=== PATIENT | female | born 1940 | race Caucasian/White ===

== ENCOUNTER 2017-05-16 09:59 | Observation (INO) | payer MEDICARE, OTHER ==
[~2017-05-16] VITALS: Ht 162.6 cm; Wt 88.0 kg
[2017-05-16] MEDS: ENOXAPARIN 40 MG/0.4 ML SYRINGE (J1650) SC SCH (09:00)
[~2017-05-16 09:59] MED LIST: ADV100INH INH; COUM2.5T17 PO; ESCI10TA2 PO; PEG1POW PO; PERC5TAB12 PO; SENO8.6T10 PO; ZETI10TA30 PO
[2017-05-16] MEDS ORDERED: methylPREDNISolone INJ 125 MG/2 ML VIAL (J2930) IV ONE (10:15)
[2017-05-16] MEDS ORDERED: ASPIRIN 81 MG CHEW TABLET PO ONE (10:15)
[2017-05-16] MEDS ORDERED: IPRATROPIUM 0.5MG/ALBUTEROL 2.5MG INH SOL UD 3ML (DUONEB)(J7620) NEB ONE (10:15)
[2017-05-16] MEDS ORDERED: FUROSEMIDE 40 MG/4 ML VIAL (J1940) IV ONE (10:15)
[2017-05-16] MEDS ORDERED: MELO15TA4 PO (10:25)
[2017-05-16] MEDS ORDERED: FURO40TA2 PO (10:25)
[2017-05-16] MEDS ORDERED: BREO1INH3 INH (10:25)
[2017-05-16] MEDS ORDERED: magnesium PO (10:25)
[2017-05-16] MEDS ORDERED: DIOV80TA3 PO (10:25)
[2017-05-16] MEDS ORDERED: ALBU83IN INH (10:25)
[2017-05-16] MEDS ORDERED: ALBU17IN INH (10:25)
[2017-05-16] MEDS ORDERED: TRAM50TA2 PO (10:25)
[2017-05-16 10:49] LABS: ABG BASE EXCESS 6.9 (-2.0-2.0); ABG HCO3 33.4 MEQ/L (22.0-26.0); ABG PARTIAL PRESSURE CO2 54.8 mmHg (35.0-45.0); ABG PARTIAL PRESSURE O2 92.8 mmHg (75.0-100.0); ABG TOTAL CO2 35.1 MEQ/L (23.0-31.0); ABG pH (ARTERIAL) 7.403 UNITS (7.350-7.450)
[2017-05-16 10:50] LABS: ABG STANDARD HCO3 30.7 MEQ/L (22.0-26.0)
[2017-05-16 11:03] LABS: BASO % 0.3 % (0.0-1.0); EOS % 0.8 % (0.0-3.0); LARGE UNSTAINED CELL % 1.8 % (0.0-4.0); LYMPH % 10.7 % (24.0-44.0); MEAN CORPUSCULAR HEMOGLOBIN 29.5 pg (27.0-33.0); MEAN CORPUSCULAR HGB CONC 31.7 g/dl (32.0-36.5); NEUTROPHILS # 10.2 K/mm3 (1.8-7.7); NEUTROPHILS % 80.3 % (36.0-66.0); PLATELET COUNT, AUTOMATED 161 k/mm3 (150-450); RED CELL DISTRIBUTION WIDTH 14.4 % (11.5-14.5); WHITE BLOOD COUNT 12.7 K/mm3 (4.0-10.0)
[2017-05-16 11:04] LABS: ADD MANUAL DIFFER NO; DIFF SLIDE NUMBER 212; EOS # 0.1 K/mm3 (0.0-0.50); LARGE UNSTAINED CELL # 0.2 K/mm3 (0.0-0.4); LYMPH # 1.4 K/mm3 (1.5-4.5); MONO # 0.8 K/mm3 (0.0-0.8)
--- NOTE | 2017-05-16 11:12 | REP ---
Clinical: Cough. Dyspnea . Comparison: 04/12/2017 . Findings: The mediastinum and cardiac silhouette are stable and within normal limits for portable technique. The lung soto are clear without acute consolidation, effusion, or pneumothorax. Skeletal structures are intact. Impression: No acute cardiopulmonary process appreciated. Signed by Ian Onofre MD 05/16/2017 11:03 A
--- NOTE | 2017-05-16 11:35 | REP ---
Clinical: Dyspnea and cough. Comparison: 03/09/2015 Findings: Lung soto demonstrate mild scattered chronic interstitial type changes with minimal basilar scarring. There is an 8 mm soft tissue nodule along the medial aspect of the right middle lobe remains stable compared to 2015. No further consolidation, nodule or mass lesion appreciated. No pleural effusion/reaction or pneumothorax. No obvious adenopathy. Extensive atherosclerotic changes to the thoracic aorta and coronary arteries without aortic aneurysm, cardiomegaly or pericardial effusion. Musculoskeletal structures demonstrate age-related degenerative changes. Impression: 1. Scattered chronic interstitial changes and scarring. 2. No obvious acute pleuroparenchymal process appreciated. 3. Extensive atherosclerotic disease to the thoracic aorta and coronary arteries. Signed by Ian Onofre MD 05/16/2017 11:26 A
[2017-05-16 11:48] LABS: GLUCOSE, FASTING 84 MG/DL (83-110)
[2017-05-16 11:49] LABS: ANION GAP 5 MEQ/L (8-16); BLOOD UREA NITROGEN 9 MG/DL (7-18); CALCIUM LEVEL 8.8 MG/DL (8.8-10.2); CARBON DIOXIDE LEVEL 36 MEQ/L (21-32); CHLORIDE LEVEL 95 MEQ/L (98-107); CREATININE FOR GFR 0.56 MG/DL (0.55-1.02); GLOMERULAR FILTRATION RATE > 60.0 (>39); POTASSIUM SERUM 4.2 MEQ/L (3.5-5.1); SODIUM LEVEL 136 MEQ/L (136-145)
[2017-05-16 12:17] LABS: ALKALINE PHOSPHATASE 87 U/L (45-117); ALT/SGPT 32 U/L (12-78); AST/SGOT 23 U/L (15-37); BILIRUBIN,TOTAL 0.6 MG/DL (0.2-1.0)
[2017-05-16 12:18] LABS: ALBUMIN 3.3 GM/DL (3.2-5.2); ALBUMIN/GLOBULIN RATIO 0.97 (1.00-1.93); BILIRUBIN,DIRECT 0.2 MG/DL (0.0-0.2); TOTAL PROTEIN 6.7 GM/DL (6.4-8.2)
[2017-05-16] MEDS ORDERED: IPRATROPIUM 0.5MG/ALBUTEROL 2.5MG INH SOL UD 3ML (DUONEB)(J7620) NEB PRN (13:45)
[2017-05-16] MEDS ORDERED: ACETAMINOPHEN TAB 650MG DOSE (2X325MG) PO PRN (13:45)
[2017-05-16] MEDS ORDERED: ONDANSETRON 4MG/2ML VIAL (J2405) IV PRN (13:45)
[2017-05-16] MEDS ORDERED: ESCI20TA PO (14:08)
[2017-05-16] MEDS ORDERED: MAGN1TAB25 PO (14:08)
[2017-05-16] MEDS ORDERED: ASPI1TAB15 PO (14:08)
[2017-05-16] MEDS ORDERED: ZETI10TA30 PO (14:08)
[2017-05-16] MEDS ORDERED: traMADol 50 MG TAB PO PRN (14:15)
--- NOTE | 2017-05-16 14:20 | HPEPDOC ---
General Date of Admission May 16, 2017 at 13:34 Attending Physician: KASSY FORDE MD Chief Complaint The patient is a 76-year-old female admitted with a reason for visit of Shortness Of Breath. History of Present Illness 76-year-old female with past medical history of peripheral vascular disease s/p B/L aortofemoral bypass, carotid artery disease s/p carotid endarterectomy, dyslipidemia, osteoarthritis, depression, and COPD on 4L of oxygen (Follows with Dr. Bassett of Pulmonary) only at night presented to the ER with a chief complaint of worsening shortness of breath over the last 3 days. During this time, the patient states that she has noted increased swelling in her lower extremities. In addition, she notes that she has felt increasing short of breath while laying flat, and notes that she has been using 2-3 pillows a night for comfort. At baseline, the patient states that she ambulates with a single point cane. However, during this time the patient states that she has been unable to move without feeling shortness of breath. She denies any associated fevers, chills, cough, chest pain, palpitations, abdominal pain, or any nausea/ vomiting/diarrhea. In the ER, the patient was noted to be hypoxic requiring 4 L of oxygen via nasal cannula at rest. She was also noted to have crackles on exam, and was given a dose of IV Lasix. The patient states that she subsequently diuresed, "a significant amount of urine" and instantly began to breathe easier. The patient will be admitted to the hospitalist service for further evaluation and management of decompensated congestive heart failure. Home Medications Scheduled Aspirin (Aspirin) 81 Mg Tab, 81 MG PO QHS, (Reported) Escitalopram Oxalate (Escitalopram Oxalate) 20 Mg Tab, 20 MG PO DAILY, (Reported ) Ezetimibe (Zetia) 10 Mg Tab, 10 MG PO DAILY, (Reported) Fluticasone/Vilanterol (Breo Ellipta 200-25 Mcg/INH) 1 Inh Inh, 1 PUFF INH DAILY , (Reported) Furosemide (Furosemide) 40 Mg Tab, 40 MG PO DAILY, (Reported) Magnesium Oxide (Magnesium) 400 Mg Tab, 400 MG PO DAILY, (Reported) Meloxicam (Meloxicam) 15 Mg Tab, 15 MG PO DAILY, (Reported) Valsartan (Diovan) 80 Mg Tab, 80 MG PO DAILY, (Reported) Scheduled PRN Albuterol Sulfate (Albuterol Sulfate) 2.5 Mg/3 Ml Nebu, 2.5 MG INH QID PRN for SHORTNESS OF BREATH, (Reported) Albuterol Sulfate (Ventolin Hfa) 200 Puff/8 Gm Aers, 2 PUFF INH QID PRN for SHORTNESS OF BREATH, (Reported) Tramadol HCl (Tramadol HCl) 50 Mg Tab, 50 MG PO for PAIN, (Reported) Allergies Coded Allergies: Morphine (Verified Allergy, Intermediate, 05/16/17) Ciprofloxacin (Unverified Allergy, Unknown, 05/29/16) Sulfa Antibiotics (Unverified Allergy, Unknown, 05/29/16) Past Medical History Medical History As noted in HPI. Surgical History History of carotid endarterectomy, aortofemoral bypass bilaterally, knee surgery Family History Significant Family History: No pertinent family hx Social History * Smoker: former Smoker (smoked half a pack per day for 25 years, quit 1 year ago) Alcohol: Denies Drugs: denies Lives at home with her , who suffers from Alzheimer's disease, and home she takes care of. She functions independently at baseline, and is able to ambulate with a single-point cane Review of Symptoms Other systems 10 point review of systems negative unless otherwise specified in HPI. Physical Examination General Exam: Positive: Alert, Cooperative, No Acute Distress ENT Exam: Positive: Atraumatic, Mucous membr. moist/pink Neck Exam: Positive: JVD Chest Exam: Positive: Rales (faint bibasilar rales noted on auscultation), Diminished Heart Exam: Positive: Rate Normal, Normal S1, Normal S2 Telemetry: Positive: Sinus Abdomen Exam: Positive: Soft, Negative: Tenderness Extremity Exam: Positive: Swelling (2+ pitting edema in the lower extremities bilaterally), Negative: Tenderness Psych Exam: Positive: Oriented x 3 Vital Signs Vital Signs Date Time Temp Pulse Resp B/P (MAP) Pulse Ox O2 Delivery O2 Flow Rate FiO2 05/16/17 13:00 70 132/77 (95) 94 05/16/17 10:37 Nasal Cannula 2.0 Laboratory Data Labs 24H Laboratory Tests 2 05/16/17 10:12: White Blood Count 12.7H, Red Blood Count 4.78, Hemoglobin 14.1, Hematocrit 44.5 , Mean Corpuscular Volume 93.0, Mean Corpuscular Hemoglobin 29.5, Mean Corpuscular Hemoglobin Concent 31.7L, Red Cell Distribution Width 14.4, Platelet Count 161, Neutrophils (%) (Auto) 80.3H, Lymphocytes (%) (Auto) 10.7L, Monocytes (%) (Auto) 6.0H, Eosinophils (%) (Auto) 0.8, Basophils (%) (Auto) 0.3 , Neutrophils # (Auto) 10.2H, Lymphocytes # (Auto) 1.4L, Monocytes # (Auto) 0.8 , Eosinophils # (Auto) 0.1, Basophils # (Auto) 0.0, Large Unclassified Cells % 1.8, Large Unclassified Cells # 0.2, Anion Gap 5L, Glomerular Filtration Rate > 60.0, Lactic Acid Level 1.1, Calcium Level 8.8, Aspartate Amino Transf (AST/SGOT ) 23, Alanine Aminotransferase (ALT/SGPT) 32, Alkaline Phosphatase 87, Total Bilirubin 0.6, Direct Bilirubin 0.2, Total Creatine Kinase 67, Creatine Kinase MB 3.0, Creatine Kinase MB Relative Index 4.47H, Troponin I 0.02, B-Type Natriuretic Peptide 115H, Total Protein 6.7, Albumin 3.3, Albumin/Globulin Ratio 0.97L, Thyroid Stimulating Hormone (TSH) 2.690 05/16/17 10:24: Blood Gas Bicarbonate Standard 30.7H, Arterial Blood pH 7.403, Arterial Blood Partial Pressure CO2 54.8H, Arterial Blood Partial Pressure O2 92.8, Arterial Blood Total CO2 35.1H, Arterial Blood HCO3 33.4H, Arterial Blood Base Excess 6.9H, Arterial Blood Oxygen Saturation 97.4 CBC/BMP Laboratory Tests 05/16/17 10:12 Red Blood Count 4.78, Mean Corpuscular Volume 93.0, Mean Corpuscular Hemoglobin 29.5, Mean Corpuscular Hemoglobin Concent 31.7 L, Red Cell Distribution Width 14.4, Neutrophils (%) (Auto) 80.3 H, Lymphocytes (%) (Auto) 10.7 L, Monocytes (% ) (Auto) 6.0 H, Eosinophils (%) (Auto) 0.8, Basophils (%) (Auto) 0.3, Neutrophils # (Auto) 10.2 H, Lymphocytes # (Auto) 1.4 L, Monocytes # (Auto) 0.8 , Eosinophils # (Auto) 0.1, Basophils # (Auto) 0.0 Plan / VTE VTE Prophylaxis Ordered?: Yes Plan Plan SOB, Hypoxia 2/2 Decompensated CHF Patient noted to have bibasilar rales, 2+ pitting edema in the lower extremities on exam Patient with significant relief of dyspnea following IV Lasix administration Chest x-ray, CT chest not suggestive of fluid overload state however, these images were taken following IV Lasix administration We will continue the patient on 40 mg of Lasix IV twice a day 2-D echocardiogram ordered EKG noted, initial troponin negative-we will serially trend Strict I's and O's U/S legs ordered to r/o DVT We will continue to monitor the patient on telemetry History of COPD Patient with no active wheezing, or cough noted on exam We will continue inhaler, nebulizer treatments as previously prescribed No indication for steroid therapy at this time Follows with Dr. Bassett of pulmonary as an outpatient We will down titrate the patient's supplemental oxygen as tolerated History of peripheral vascular disease s/p aortofemoral bypass, carotid artery disease s/p endarterectomy Continue aspirin Not on Statin?--Will defer this to the patient's PCP Hypertension, stable Continue valsartan Osteoarthritis, Chronic pain Continue tramadol Dyslipidemia Continue Zetia Not on Statin?--Will defer this to the patient's PCP DVT progresses Lovenox The patient will be admitted under the service of Dr. Forde, who will begin to follow the patient on 05/17/17 at 7 AM. ARIELA GARCIA MD May 16, 2017 14:20
--- NOTE | 2017-05-16 15:19 | REP ---
Clinical: Pain . Technique: Allen scale and color Doppler evaluation using linear high frequency transducer. Findings: Ultrasound examination of the right and left lower extremity deep venous structures from the common femoral vein to the popliteal vein demonstrates normal compressibility flow and wave patterns in response to respiration and augmentation. There is no evidence for deep venous thrombosis bilaterally. An 8 x 3.7 x 4.7 cm seroma is identified in the left groin likely related to given history of prior vascular surgery. Impression: No evidence for deep venous thrombosis bilaterally. 8 cm simple appearing seroma in the right groin. Signed by Ian Onofre MD 05/16/2017 03:11 P
[2017-05-16] MEDS: IPRATROPIUM 0.5MG/ALBUTEROL 2.5MG INH SOL UD 3ML (DUONEB)(J7620) NEB SCH ×3 (15:36→23:33)
[2017-05-16] MEDS ORDERED: FUROSEMIDE 40 MG/4 ML VIAL (J1940) IV SCH (17:00)
--- NOTE | 2017-05-16 18:29 | ECGEPIP ---
Stationary ECG Study [facility] - ED Test Date: 2017-05-16 Pat Name: JESSIE INTERIANO Department: Room: - Gender: F Critical Care Unit Nurse: DONA : 1940 Requested By: JENNA Solorio Order Number: [id number] Reading MD: Chip Sanchez Measurements Intervals [place] Rate: 66 P: 55 GA: 161 QRS: 103 QRSD: 100 T: 53 QT: 410 QTc: 432 Interpretive Statements SINUS RHYTHM POSSIBLE LEFT ATRIAL ENLARGEMENT INCOMPLETE RIGHT BUNDLE BRANCH BLOCK POSSIBLE RIGHT VENTRICULAR HYPERTROPHY SIMILAR TO 05/16/16 Electronically Signed On 05-16-2017 18:29:03 EDT by Chip Sanchez
[2017-05-16] MEDS: ADVAIR HFA 115/21MCG INHALER INH SCH (19:20)
[2017-05-16 19:49] VITALS: BP 117/63
[2017-05-16 20:30] VITALS: BP 118/62
[2017-05-16] MEDS ORDERED: ASPIRIN 81 MG ENTERIC TAB PO SCH (21:00)
[2017-05-16 23:59] VITALS: BP 119/59
[2017-05-17] MEDS: IPRATROPIUM 0.5MG/ALBUTEROL 2.5MG INH SOL UD 3ML (DUONEB)(J7620) NEB SCH ×3 (04:00→11:18)
[2017-05-17 04:24] VITALS: BP 134/75
[2017-05-17 04:53] LABS: MEAN CORPUSCULAR HEMOGLOBIN 29.8 pg (27.0-33.0); MEAN CORPUSCULAR VOLUME 90.3 fl (80.0-96.0); RED CELL DISTRIBUTION WIDTH 14.2 % (11.5-14.5); WHITE BLOOD COUNT 17.4 K/mm3 (4.0-10.0)
[2017-05-17 05:19] LABS: ANION GAP 3 MEQ/L (8-16); BLOOD UREA NITROGEN 17 MG/DL (7-18); CALCIUM LEVEL 8.9 MG/DL (8.8-10.2); CARBON DIOXIDE LEVEL 39 MEQ/L (21-32); CHLORIDE LEVEL 93 MEQ/L (98-107); CREATININE FOR GFR 0.81 MG/DL (0.55-1.02); GLOMERULAR FILTRATION RATE > 60.0 (>39); GLUCOSE, FASTING 103 MG/DL (83-110); MAGNESIUM LEVEL 2.1 MG/DL (1.8-2.4); SODIUM LEVEL 135 MEQ/L (136-145)
[2017-05-17 07:43] VITALS: BP 121/64
[2017-05-17] MEDS: ADVAIR HFA 115/21MCG INHALER INH SCH (08:31)
[2017-05-17] MEDS ORDERED: LASI40TA PO (08:39)
[2017-05-17] MEDS ORDERED: FUROSEMIDE 100 MG/10 ML VIAL (J1940) IV SCH (09:00)
[2017-05-17] MEDS ORDERED: EZETIMIBE 10 MG TAB (ZETIA) PO SCH (09:00)
[2017-05-17] MEDS ORDERED: VALSARTAN 80 MG TAB (DIOVAN) PO SCH (09:00)
[2017-05-17] MEDS ORDERED: ESCITALOPRAM OXALATE 10 MG TAB (LEXAPRO) PO SCH (09:00)
[2017-05-17] MEDS: ENOXAPARIN 40 MG/0.4 ML SYRINGE (J1650) SC SCH (09:00)
[2017-05-17 09:04] VITALS: BP 121/64
--- NOTE | 2017-05-17 13:07 | IPNPDOC ---
Subjective Date Seen The patient was seen on 05/17/17. Subjective Chief Complaint/HPI The patient is a 76-year-old female admitted with a reason for visit of Shortness Of Breath. Events since last encounter Shortness of breath better after lasix , did greater than 1000 ml negative overnight. has severe nocturnal hypoxemia so started on nocturnal oxygen about a week ago . leg swelling better. Objective Physical Examination General Exam: Positive: Alert, Cooperative, No Acute Distress Eye Exam: Positive: PERRLA, Conjunctiva & lids normal, EOMI, Negative: Sclera icteric ENT Exam: Positive: Atraumatic, Mucous membr. moist/pink Neck Exam: Positive: JVD Chest Exam: Positive: Rales (faint bibasilar rales noted on auscultation), Diminished Heart Exam: Positive: Rate Normal, Normal S1, Normal S2 Telemetry: Positive: Sinus Abdomen Exam: Positive: Normal bowel sounds, Soft, Negative: Tenderness Extremity Exam: Positive: Edema, Swelling (2+ pitting edema in the lower extremities bilaterally), Negative: Tenderness Skin Exam: Positive: Nl turgor and temperature, Negative: Rash, Breakdown Psych Exam: Positive: Oriented x 3 Assessment /Plan Problems (1) CHF (congestive heart failure) Status: Acute Problem Text: patient improved with IV lasix will be discharged with increased dose of lasix 2 gm sodium diet fluid restriction 1.5 liters. (2) Chronic respiratory failure with hypoxia and hypercapnia Status: Chronic Problem Text: Acute and chronic respiratory failure. Has emphysema and now with fluid overload and CHF which has worsened her respiratory status. and recently started on home oxygen at night. (3) COPD (chronic obstructive pulmonary disease) Status: Chronic (4) PVD (peripheral vascular disease) Status: Chronic (5) Carotid artery disease Status: Chronic (6) Hypertension Status: Chronic (7) Hyperlipidemia Status: Chronic (8) Anxiety and depression Status: Chronic Plan/VTE VTE Prophylaxis Ordered?: Yes Disposition discharge home follow up with PCP in 1 week Needs an outpatient echo. script given to patient. VS, I&O, 24H, Fishbone Vital Signs/I&O Vital Signs Date Time Temp Pulse Resp B/P (MAP) Pulse Ox O2 Delivery O2 Flow Rate FiO2 05/17/17 09:10 89 Room Air 05/17/17 09:04 121/64 05/17/17 07:43 97.8 69 20 3.0 I&O- Last 24 Hours up to 6 AM 05/17/17 06:00 Intake Total 900 ml Output Total 1350 ml Balance -450 ml Laboratory Data 24H LABS Laboratory Tests 2 05/16/17 18:01: Total Creatine Kinase 71, Creatine Kinase MB 2.7, Creatine Kinase MB Relative Index 3.80, Troponin I < 0.02 05/17/17 04:44: Total Creatine Kinase 90, Creatine Kinase MB 3.1, Creatine Kinase MB Relative Index 3.44, Troponin I 0.03#, Anion Gap 3L, Glomerular Filtration Rate > 60.0, Blood Urea Nitrogen 17#, Creatinine 0.81, Sodium Level 135L, Potassium Level 4.0 , Chloride Level 93L, Carbon Dioxide Level 39H, Calcium Level 8.9, Magnesium Level 2.1 05/17/17 10:06: Total Creatine Kinase 93, Creatine Kinase MB 3.3, Creatine Kinase MB Relative Index 3.54, Troponin I 0.03 CBC/BMP Laboratory Tests 05/17/17 04:44 Red Blood Count 4.84, Mean Corpuscular Volume 90.3, Mean Corpuscular Hemoglobin 29.8, Mean Corpuscular Hemoglobin Concent 33.0, Red Cell Distribution Width 14.2 , Calcium Level 8.9, Total Creatine Kinase 90 KASSY HERNÁNDEZ MD May 17, 2017 13:07
[2017-05-18] MEDS ORDERED: INFLUENZA VIRUS VACCINE HIGH DOSE 0.5 ML SYRINGE (90662) IM ONE (09:00)
== END 2017-05-17 12:50 | disposition home or self-care (01) ==
LOC: EDBD 09:59 → M ED 09:59 → M ED INP 13:34 → M PCU 20:30
PROVIDERS: ADMIT Internal Medicine; ATTEND Internal Medicine Nephrology
DX: I50.9 Heart failure, unspecified (principal); J96.01 Acute respiratory failure with hypoxia; J96.02 Acute respiratory failure with hypercapnia; J44.9 Chronic obstructive pulmonary disease, unspecified; I73.9 Peripheral vascular disease, unspecified; I25.10 Atherosclerotic heart disease of native coronary artery without angina pectoris; I11.0 Hypertensive heart disease with heart failure; E78.4 Other hyperlipidemia; F41.9 Anxiety disorder, unspecified; F32.9 Major depressive disorder, single episode, unspecified; Z79.82 Long term (current) use of aspirin; Z79.899 Other long term (current) drug therapy; Z88.1 Allergy status to other antibiotic agents; Z88.2 Allergy status to sulfonamides; Z88.8 Allergy status to other drugs, medicaments and biological substances
CPT/HCPCS: 36415; 36600; 71010; 71250; 80048; 80076; 82550; 82553; 82803; 83605; 83735; 83880; 84443; 84484; 85025; 85027; 93005; 93041; 93970; 94640; 96374; 96375; 96376; 99285; G0378; J1940; J2930

== ENCOUNTER → 2017-09-20 | Outpatient (REF) | payer MEDICARE, OTHER ==
[2017-09-20 13:19] LABS: REASON FOR REVIEW COMPREHENSIVE REVIEW; SLIDE REVIEW Report; SOURCE PERIPHERAL SMEAR
== END ==
LOC: M LAB REF 12:18
DX: D72.829 Elevated white blood cell count, unspecified (principal)

== ENCOUNTER → 2018-06-09 | Outpatient (REF) | payer MEDICARE, OTHER ==
[2018-06-09 14:40] LABS: FERRITIN 249 NG/ML (8-252); IRON (FE) 38 UG/DL (50-170); PERCENT SATURATION 19.5 % (13.2-45.0); TOTAL IRON BINDING CAPACITY 195 UG/DL (250-450)
== END ==
LOC: M LAB REF 13:58
DX: D50.9 Iron deficiency anemia, unspecified (principal)
CPT/HCPCS: 83550

== ENCOUNTER → 2018-06-23 | Outpatient (REF) | payer MEDICARE, OTHER | LOC: M LAB REF 13:04 | DX: R19.7 Diarrhea, unspecified (principal) | CPT/HCPCS: 87493 ==

== ENCOUNTER → 2018-11-25 | Outpatient (REF) | payer MEDICARE, OTHER ==
[~2018-11-25] MED LIST changes: +ALBU17IN INH; +ALBU83IN INH; +ASPI1TAB15 PO; +BREO1INH3 INH; +DIOV80TA3 PO; +ESCI20TA PO; +FURO40TA2 PO; +LASI40TA9 PO; +MAGN1TAB25 PO; +MELO15TA28 PO; +TRAM50TA2 PO; +magnesium PO
[2018-11-25 15:46] LABS: CLOSTRIDIUM DIFFICILE PCR NEGATIVE (NEGATIVE)
== END ==
LOC: M LAB REF 13:20
PROVIDERS: ATTEND Internal Medicine Gastroenterology
DX: R19.7 Diarrhea, unspecified (principal)

== ENCOUNTER → 2019-01-20 | Outpatient (REF) | payer MEDICARE, OTHER ==
[~2019-01-20] MED LIST changes: -MAGN1TAB25 PO; +MAGN1TAB26 PO
== END ==
LOC: M LAB REF 17:25
PROVIDERS: ATTEND Nurse Practitioner Family
DX: J44.9 Chronic obstructive pulmonary disease, unspecified (principal); R06.02 Shortness of breath

== ENCOUNTER 2019-06-25 15:08 | Inpatient (IN) | payer MEDICARE, OTHER ==
[~2019-06-25] VITALS: Ht 162.6 cm; Wt 87.7 kg
[~2019-06-25 15:08] MED LIST changes: +ZETI10TA16 PO; -ZETI10TA30 PO
[2019-06-25] MEDS ORDERED: NS 500 ML IV ONE ×2 (15:45→16:45)
[2019-06-25] MEDS ORDERED: IPRATROPIUM 0.5MG/ALBUTEROL 2.5MG INH SOL UD 3ML (DUONEB)(J7620) NEB ONE (15:45)
[2019-06-25] MEDS ORDERED: ALBUTEROL SULFATE 2.5 MG/0.5 ML INH NEB SOLN INH ONE (15:45)
[2019-06-25 16:26] LABS: ABG BASE EXCESS 6.6 (-2.0-2.0); ABG HCO3 31.7 MEQ/L (22.0-26.0); ABG O2 SATURATION 95.4 % (95.0-99.0); ABG PARTIAL PRESSURE CO2 47.8 mmHg (35.0-45.0); ABG PARTIAL PRESSURE O2 77.7 mmHg (75.0-100.0); ABG STANDARD HCO3 30.4 MEQ/L (22.0-26.0); ABG TOTAL CO2 33.2 MEQ/L (23.0-31.0)
--- NOTE | 2019-06-25 16:26 | REP ---
Single view chest: 06/25/2019. Indication: Altered mental status. Comparison: CT chest dated 05/16/2017. Findings: Air space consolidation is noted within the right lung base. Bibasilar atelectatic changes are present. There is no significant pleural effusion. No pneumothorax is present. The cardiac silhouette is unremarkable. Impression: Right lower lobe air space disease likely representing pneumonia. Bibasilar atelectasis. Electronically Signed by Finesse Magana DO 06/25/2019 04:18 P
--- NOTE | 2019-06-25 16:28 | REP ---
CT brain: 06/25/2019. Indication: Altered mental status. Stroke. Comparison: None. Technique: Unenhanced axial CT images of the brain were obtained from skull base to vertex. Findings: There is no acute intracranial hemorrhage, acute cortical infarction, mass effect or hydrocephalous. Age-related volume loss is present. There are a few small patchy areas of white matter hypoattenuation consistent with mild chronic small vessel disease. Impression: No acute intracranial process. Electronically Signed by Finesse Magana DO 06/25/2019 04:21 P
[2019-06-25] MEDS ORDERED: PIPERACILLIN/TAZOBACTAM SOD 4.5 GM in D5W MINI-BAG PLUS 50 ML IV ONE (16:45)
[2019-06-25 16:51] LABS: BASO # 0.1 10^3/uL (0.0-0.2); BASO % 0.4 % (0.0-1.0); EOS # 0.2 10^3/uL (0.0-0.5); EOS % 1.3 % (0.0-3.0); HEMATOCRIT 38.3 % (36.0-47.0); HEMOGLOBIN 11.7 g/dl (12.0-15.5); LYMPH # 2.3 10^3/uL (1.5-5.0); LYMPH % 16.5 % (24.0-44.0); MEAN CORPUSCULAR HEMOGLOBIN 27.7 pg (27.0-33.0); MEAN CORPUSCULAR HGB CONC 30.5 g/dl (32.0-36.5); MEAN CORPUSCULAR VOLUME 90.5 fl (80.0-96.0); NEUTROPHILS # 10.5 10^3/uL (1.5-8.5); NEUTROPHILS % 74.1 % (36.0-66.0); PLATELET COUNT, AUTOMATED 238 10^3/uL (150-450); RED BLOOD COUNT 4.23 10^6/uL (4.00-5.40); WHITE BLOOD COUNT 14.2 10^3/uL (4.0-10.0)
[2019-06-25 16:52] LABS: OSMOLALITY SERUM 295 MOSM/KG (280-301)
[2019-06-25 17:20] LABS: ACETAMINOPHEN LEVEL < 2.0 UG/ML (10.0-30.0); ALT/SGPT 19 U/L (12-78); BILIRUBIN,DIRECT < 0.1 MG/DL (0.0-0.2); BILIRUBIN,TOTAL 0.2 MG/DL (0.2-1.0); BLOOD UREA NITROGEN 28 MG/DL (7-18); CARBON DIOXIDE LEVEL 34 MEQ/L (21-32); CHLORIDE LEVEL 96 MEQ/L (98-107); CK-MB VALUE MASS 4.2 NG/ML (<3.6); CPK CREATINE PHOSPHOKINASE 58 U/L (26-192); CREATININE FOR GFR 1.46 MG/DL (0.55-1.30); ETHYL ALCOHOL (ETHANOL) < 0.003 % (0.000-0.010); GLOMERULAR FILTRATION RATE 37.1 (>39); GLUCOSE, FASTING 110 MG/DL (70-100); MAGNESIUM LEVEL 1.9 MG/DL (1.8-2.4); MB/CK RELATIVE INDEX 7.24 (< OR =4); POTASSIUM SERUM 4.4 MEQ/L (3.5-5.1); SALICYLATE LEVEL < 1.7 MG/DL (5.0-30.0); SODIUM LEVEL 136 MEQ/L (136-145); TOTAL PROTEIN 6.2 GM/DL (6.4-8.2); TROPONIN I 0.04 NG/ML (< 0.10)
[2019-06-25] MEDS ORDERED: LOSA50TA88 PO (18:29)
[2019-06-25] MEDS ORDERED: VENTAER INH (18:29)
[2019-06-25] MEDS ORDERED: BUME2TAB3 PO (18:29)
[2019-06-25] MEDS ORDERED: SPIR50TA4 PO (18:29)
[2019-06-25] MEDS ORDERED: D31000TA PO (18:32)
[2019-06-25] MEDS ORDERED: ACET25TA12 PO (18:32)
--- NOTE | 2019-06-25 18:43 | HPEPDOC ---
[facility] Medical History & Physical Date of Admission Jun 25, 2019 Date of Service: Jun 25, 2019 Attending Physician: BETTY CHRERY MD History and Physical CHIEF COMPLAINT: Altered mental status HISTORY OF PRESENT ILLNESS: 78-year-old female with past medical history of COPD (on home oxygen) CHF, hypertension, peripheral vascular disease (status post carotid endarterectomy 2, lower extremity stent placement), is brought in by family for progressive confusion/altered mental status. Patient is a poor historian, reports information as accurate/facts which are contradicted by her family will provide different timeframes and information. As per family, patient has been progressively becoming more confused, forgetting simple things like how to use the TV remote or play cards. As per patient, she is at baseline, has no complaints at this time, reports she is doing well and wants to go home. In the ED, patient is found to have elevated creatinine; as per family, she has a very poor appetite, lives alone, all the food brought to her by family members, was found in the fridge without her consuming any. A chest x-ray concerning for pneumonia. Patient reports that she was diagnosed with pneumonia a month ago and has been getting antibiotics since, family reports it never heard of this disp saxman her claims. Patient denies any change in her baseline cough, denies sputum production, chest pain, vomiting, abdominal pain or diarrhea. 10 point review of systems negative except for above PAST MEDICAL HISTORY: 1. COPD. 2. CHF. 3. Peripheral vascular disease. 4. Hypertension. 5. Hyperlipidemia PAST SURGICAL HISTORY: 1. Left shoulder surgery. 2. Knee and hip surgeries. 3. Carotid endarterectomy. 4. Hysterectomy SOCIAL HISTORY: Current smoker, 1 pack per day, has been smoking most of her life. Denies alcohol use FAMILY HISTORY: History of heart disease or malignancy ALLERGIES: Please see below. HOME MEDICATIONS: Please see below. PHYSICAL EXAMINATION: VITAL SIGNS: Please see below. GENERAL: No distress, thin, frail HEENT: Normocephalic, atraumatic, moist mucous membranes NECK: Supple CARDIOVASCULAR EXAMINATION: S1, S2, no murmurs RESPIRATORY EXAMINATION: Poor air movement, diminished, no rhonchi ABDOMINAL EXAMINATION: Soft, nontender, nondistended, positive bowel sounds EXTREMITIES: Range of motion intact SKIN: No rash NEUROLOGICAL EXAMINATION: no focal deficits PSYCHIATRIC EXAMINATION: Calm and cooperative LABORATORY DATA: See below. IMAGING: Chest x-ray with right lower lobe infiltrate MICROBIOLOGY: Please see below. ASSESSMENT: 78-year-old female with history of COPD on home oxygen, CHF, peripheral vascular disease, being admitted for acute renal failure and possible pneumonia. . PLAN: 1. Acute renal failure. Likely due to poor oral intake, medications Gentle IV hydration with normal saline at 80 ML per hour, status post 1 L bolus in the ED ABG and labs concerning for contraction alkalosis, we'll continue to monitor labs. 2. Pneumonia. Questionable recent outpatient treatment for pneumonia, chest x-ray with right lower lobe infiltrate, CT scan pending. Patient reports sometimes having difficulty with swallowing, swallow eval ordered, nothing by mouth, empiric Zosyn ordered. 3. CHF. Patient clinically appears dry, trial of IV hydration, will monitor for decompensation. 4. COPD Poor air movement, likely not compliant with home inhalers as they're still in their packaging, DuoNeb every 6 hours, submental oxygen to maintain oxygen saturation of 90%. 5. Peripheral vascular disease Continue statin, aspirin DVT prophylaxis: Heparin subcutaneous GI prophylaxis: Not needed Vital Signs Vital Signs Date Time Temp Pulse Resp B/P (MAP) Pulse Ox O2 Delivery O2 Flow Rate FiO2 06/25/19 15:46 06/25/19 15:08 97.1 78 16 90 Room Air Laboratory Data Labs 24H Laboratory Tests 2 06/25/19 16:12: Blood Gas Bicarbonate Standard 30.4H, Arterial Blood pH 7.440, Arterial Blood Partial Pressure CO2 47.8H, Arterial Blood Partial Pressure O2 77.7, Arterial Blood Total CO2 33.2H, Arterial Blood HCO3 31.7H, Arterial Blood Base Excess 6.6H, Arterial Blood Oxygen Saturation 95.4 06/25/19 16:25: Immature Granulocyte % (Auto) 0.7, Neutrophils (%) (Auto) 74.1H, Lymphocytes (%) (Auto) 16.5L, Monocytes (%) (Auto) 7.0H, Eosinophils (%) (Auto) 1.3, Basophils (%) (Auto) 0.4, Neutrophils # (Auto) 10.5H, Lymphocytes # (Auto) 2.3, Monocytes # (Auto) 1.0H, Eosinophils # (Auto) 0.2, Basophils # (Auto) 0.1, Nucleated Red Blood Cells % (auto) 0.0, Anion Gap 6L, Glomerular Filtration Rate 37.1L, Osmolality 295, Lactic Acid Level 1.7, Calcium Level 9.0, Magnesium Level 1.9, Total Bilirubin 0.2, Direct Bilirubin < 0.1, Aspartate Amino Transf (AST/SGOT) 12, Alanine Aminotransferase (ALT/SGPT) 19, Alkaline Phosphatase 82, Ammonia 16, Total Creatine Kinase 58, Creatine Kinase MB 4.2H, Creatine Kinase MB Relative Index 7.24H, Troponin I 0.04, Total Protein 6.2L, Albumin 3.0L, Albumin/Globulin Ratio 0.94L, Thyroid Stimulating Hormone (TSH) 4.530H, Salicylates Level < 1.7L, Acetaminophen Level < 2.0L, Ethyl Alcohol Level < 0.003 CBC/BMP Laboratory Tests 06/25/19 16:25 Microbiology Microbiology 06/25/19 Blood Culture, Received Pending 06/25/19 Blood Culture, Received Pending Home Medications Scheduled Aspirin (Aspirin EC) 81 Mg Tab, 81 MG PO QHS Bumetanide (Bumetanide) 2 Mg Tablet, 2 MG PO DAILY Escitalopram Oxalate (Escitalopram Oxalate) 20 Mg Tab, 20 MG PO DAILY Ezetimibe (Zetia) 10 Mg Tab, 10 MG PO DAILY Fluticasone/Vilanterol (Breo Ellipta 200-25 Mcg INH) 1 Inh Inh, 1 PUFF INH DAILY Losartan Potassium (Losartan Potassium) 50 Mg Tablet, 50 MG PO DAILY Magnesium Oxide (Magnesium Oxide) 400 Mg Tab, 400 MG PO DAILY Meloxicam (Meloxicam) 15 Mg Tab, 15 MG PO DAILY Spironolactone (Spironolactone) 50 Mg Tablet, 50 MG PO DAILY Scheduled PRN Albuterol Sulf (Albuterol Sulfate) 2.5 Mg/3 Ml Nebu, 2.5 MG INH QID PRN for SHORTNESS OF BREATH Albuterol Sulfate (Ventolin Hfa) 18 Gm Hfa.aer.ad, 2 PUFF INH Q4H PRN for wheezing Tramadol HCl (Tramadol HCl) 50 Mg Tab, 50 MG PO for PAIN Allergies Coded Allergies: Sulfa (Sulfonamide Antibiotics) (Verified Allergy, Unknown, 06/25/19) ciprofloxacin (Verified Allergy, Unknown, 06/25/19) morphine (Verified Allergy, Unknown, 06/25/19) A-FIB/CHADSVASC A-FIB History Current/History of A-Fib/PAF?: No BETTY CHERRY MD Jun 25, 2019 18:43
--- NOTE | 2019-06-25 18:46 | REPVR ---
PROCEDURE INFORMATION: Exam: CT Chest Without Contrast Exam date and time: 06/25/2019 5:42 PM Clinical history: 78 years old, female; Condition or disease; Lung condition and disease; Pneumonia; Additional info: Pna TECHNIQUE: Imaging protocol: Computed tomography of the chest without contrast. 3D rendering: MIP reconstructed images were created and reviewed. Radiation optimization: All CT scans at this facility use at least one of these dose optimization techniques: automated exposure control; mA and/or kV adjustment per patient size (includes targeted exams where dose is matched to clinical indication); or iterative reconstruction. COMPARISON: CT Chest without contrast 05/16/2017 11:03 AM FINDINGS: Lungs: Small scattered airspace opacities throughout the lungs, including subsegmental areas of consolidation, most pronounced in the right middle lobe. Pleural space: Trace right pleural effusion. Heart: Mitral annular calcifications. Aorta: Mild atherosclerotic calcifications of the aorta. Lymph nodes: No enlarged lymph nodes. Gallbladder and bile ducts: Gallbladder surgically absent. Bones/joints: Multilevel degenerative changes of the visualized spine. Soft tissues: Unremarkable. IMPRESSION: 1. Small scattered airspace opacities throughout the lungs, including subsegmental areas of consolidation, most pronounced in the right middle lobe. Findings concerning for multifocal pneumonia. Recommend followup chest imaging in 6-8 weeks resolution. 2. Trace right pleural effusion. 3. Other chronic findings, as above. Electronically signed by: Andre Moore On 06/25/2019 18:45:44 PM
[2019-06-25] MEDS ORDERED: PIPERACILLIN/TAZOBACTAM SOD 3.375 GM in D5W MINI-BAG PLUS 50 ML IV SCH (20:00)
[2019-06-25 20:21] LABS: AMPHETAMINES LEVEL URINE NEGATIVE (NEGATIVE); BARBITURATES URINE NEGATIVE (NEGATIVE); BENZODIAZEPINES URINE NEGATIVE (NEGATIVE); CANNABINOIDS URINE NEGATIVE (NEGATIVE); COCAINE METABOLITE URINE NEGATIVE (NEGATIVE); METHADONE URINE NEGATIVE (NEGATIVE); OPIATES URINE NEGATIVE (NEGATIVE); PHENCYCLIDINE URINE NEGATIVE (NEGATIVE)
[2019-06-25] MEDS: IPRATROPIUM 0.5MG/ALBUTEROL 2.5MG INH SOL UD 3ML (DUONEB)(J7620) NEB PRN (20:45)
[2019-06-25] MEDS: ASPIRIN 81 MG ENTERIC TAB PO SCH ×2 (21:00→23:27)
[2019-06-25] MEDS ORDERED: PIPERACILLIN/TAZOBACTAM SOD 2.25 GM in D5W MINI-BAG PLUS 50 ML IV SCH (21:00)
[2019-06-25 22:00] VITALS: BP 131/49
[2019-06-25] MEDS: PIPERACILLIN/TAZOBACTAM SOD 2.25 GM in D5W MINI-BAG PLUS 50 ML IV SCH (23:27)
[2019-06-25] MEDS: HEPARIN SOD (PORCINE) 5000 UNITS/ML VIAL SC SCH (23:27)
[2019-06-25] MEDS: NS 1,000 ML IV SCH (23:28)
[2019-06-26] MEDS: PIPERACILLIN/TAZOBACTAM SOD 2.25 GM in D5W MINI-BAG PLUS 50 ML IV SCH ×4 (04:57→22:25)
[2019-06-26 06:00] VITALS: BP 92/41
[2019-06-26 06:41] LABS: HEMATOCRIT 34.5 % (36.0-47.0); HEMOGLOBIN 10.4 g/dl (12.0-15.5); MEAN CORPUSCULAR HEMOGLOBIN 27.9 pg (27.0-33.0); MEAN CORPUSCULAR HGB CONC 30.1 g/dl (32.0-36.5); MEAN CORPUSCULAR VOLUME 92.5 fl (80.0-96.0); PLATELET COUNT, AUTOMATED 215 10^3/uL (150-450); RED BLOOD COUNT 3.73 10^6/uL (4.00-5.40); WHITE BLOOD COUNT 9.7 10^3/uL (4.0-10.0)
[2019-06-26 07:15] LABS: ALBUMIN 2.5 GM/DL (3.2-5.2); BILIRUBIN,TOTAL 0.6 MG/DL (0.2-1.0); CREATININE FOR GFR 1.33 MG/DL (0.55-1.30); GLOMERULAR FILTRATION RATE 41.3 (>39); POTASSIUM SERUM 4.6 MEQ/L (3.5-5.1); TOTAL PROTEIN 5.9 GM/DL (6.4-8.2)
[2019-06-26] MEDS: NS 1,000 ML IV SCH (08:44)
[2019-06-26] MEDS: SPIRONOLACTONE 50 MG TAB PO SCH (08:45)
[2019-06-26] MEDS: HEPARIN SOD (PORCINE) 5000 UNITS/ML VIAL SC SCH ×2 (08:45→22:23)
[2019-06-26] MEDS: ESCITALOPRAM OXALATE 10 MG TAB (LEXAPRO) PO SCH (08:45)
[2019-06-26] MEDS: VITAMIN D 1,000 INTERNATIONAL UNITS TABLET PO SCH (08:45)
[2019-06-26] MEDS: EZETIMIBE 10 MG TAB (ZETIA) PO SCH (08:45)
[2019-06-26] MEDS: traMADol 50 MG TAB PO PRN (10:49)
--- NOTE | 2019-06-26 12:46 | IPNPDOC ---
Date Seen The patient was seen on 06/26/19. Progress Note HISTORY OF PRESENT ILLNESS: 78-year-old female with past medical history of COPD (on home oxygen) CHF, hypertension, peripheral vascular disease (status post carotid endarterectomy 2, lower extremity stent placement), is brought in by family for progressive confusion/altered mental status. Patient is a poor historian, reports information as accurate/facts which are contradicted by her family will provide different timeframes and information. As per family, patient has been progressively becoming more confused, forgetting simple things like how to use the TV remote or play cards. As per patient, she is at baseline, has no complaints at this time, reports she is doing well and wants to go home. In the ED, patient is found to have elevated creatinine; as per family, she has a very poor appetite, lives alone, all the food brought to her by family members, was found in the fridge without her consuming any. A chest x-ray concerning for pneumonia. Patient reports that she was diagnosed with pneumonia a month ago and has been getting antibiotics since, family reports it never heard of this dispute her claims. Patient denies any change in her baseline cough, denies sputum production, chest pain, vomiting, abdominal pain or diarrhea. 06/26/2019 Patient continues to have dyspnea, cough productive of white sputum. She does appear to be more alert and oriented today, no additional complaints. She denies any chest pain, vomiting, abdominal pain or diarrhea. 10 point review of systems negative except for above HOME MEDICATIONS: Please see below. PHYSICAL EXAMINATION: VITAL SIGNS: Please see below. GENERAL: No distress, thin, frail HEENT: Normocephalic, atraumatic, moist mucous membranes NECK: Supple CARDIOVASCULAR EXAMINATION: S1, S2, no murmurs RESPIRATORY EXAMINATION: Scattered rhonchi, diminished ABDOMINAL EXAMINATION: Soft, nontender, nondistended, positive bowel sounds EXTREMITIES: Range of motion intact SKIN: No rash NEUROLOGICAL EXAMINATION: no focal deficits PSYCHIATRIC EXAMINATION: Calm and cooperative LABORATORY DATA: See below. IMAGING: CT with multifocal pneumonia MICROBIOLOGY: Please see below. ASSESSMENT: 78-year-old female with history of COPD on home oxygen, CHF, peripheral vascular disease, being admitted for acute renal failure and multifoc al pneumonia. PLAN: 1. Acute renal failure. Likely due to poor oral intake, medications Continue gentle IV hydration with normal saline at 80 ML per hour 2. Multifocal pneumonia Concerned about aspiration, speech and swallow eval pending. Continue Zosyn, supplemental oxygen to maintain O2 sats of 90%. 3. CHF. Patient clinically appears dry, trial of IV hydration, will monitor volume st atus. 4. COPD Slightly improved, likely not compliant with home inhalers as they're still in their packaging, DuoNeb every 6 hours, submental oxygen to maintain oxygen saturation of 90%. 5. Peripheral vascular disease Continue statin, aspirin DVT prophylaxis: Heparin subcutaneous GI prophylaxis: Not needed VS, I&O, 24H, Fishbone Vital Signs/I&O Vital Signs Date Time Temp Pulse Resp B/P (MAP) Pulse Ox O2 Delivery O2 Flow Rate FiO2 06/26/19 11:30 18 06/26/19 06:00 98.4 75 92/41 (58) 95 Nasal Cannula 2.0 I&O- Last 24 Hours up to 6 AM 06/26/19 06:00 Intake Total 1590 ml Balance 1590 ml Laboratory Data 24H LABS Laboratory Tests 2 06/25/19 16:12: Blood Gas Bicarbonate Standard 30.4H, Arterial Blood pH 7.440, Arterial Blood Partial Pressure CO2 47.8H, Arterial Blood Partial Pressure O2 77.7, Arterial Blood Total CO2 33.2H, Arterial Blood HCO3 31.7H, Arterial Blood Base Excess 6.6H, Arterial Blood Oxygen Saturation 95.4 06/25/19 16:25: Immature Granulocyte % (Auto) 0.7, Neutrophils (%) (Auto) 74.1H, Lymphocytes (%) (Auto) 16.5L, Monocytes (%) (Auto) 7.0H, Eosinophils (%) (Auto) 1.3, Basophils (%) (Auto) 0.4, Neutrophils # (Auto) 10.5H, Lymphocytes # (Auto) 2.3, Monocytes # (Auto) 1.0H, Eosinophils # (Auto) 0.2, Basophils # (Auto) 0.1, Nucleated Red Blood Cells % (auto) 0.0, Anion Gap 6L, Glomerular Filtration Rate 37.1L, Osmolality 295, Lactic Acid Level 1.7, Calcium Level 9.0, Magnesium Level 1.9, Total Bilirubin 0.2, Direct Bilirubin < 0.1, Aspartate Amino Transf (AST/SGOT) 12, Alanine Aminotransferase (ALT/SGPT) 19, Alkaline Phosphatase 82, Ammonia 16, Total Creatine Kinase 58, Creatine Kinase MB 4.2H, Creatine Kinase MB Relative Index 7.24H, Troponin I 0.04, Total Protein 6.2L, Albumin 3.0L, Albumin/Globulin Ratio 0.94L, Thyroid Stimulating Hormone (TSH) 4.530H, Salicylates Level < 1.7L, Acetaminophen Level < 2.0L, Ethyl Alcohol Level < 0.003 06/25/19 19:51: Urine Opiates Screen NEGATIVE, Urine Methadone Screen NEGATIVE, Urine Barbiturates Screen NEGATIVE, Urine Phencyclidine Screen NEGATIVE, Urine Amphetamines Screen NEGATIVE, Urine Benzodiazepines Screen NEGATIVE, Urine Cocaine Metabolite Screen NEGATIVE, Urine Cannabinoids Screen NEGATIVE 06/26/19 05:51: Nucleated Red Blood Cells % (auto) 0.0, Anion Gap 4L, Glomerular Filtration Rate 41.3, Calcium Level 8.0L, Magnesium Level 2.0, Total Bilirubin 0.6#, Aspartate Amino Transf (AST/SGOT) 12, Alanine Aminotransferase (ALT/SGPT) 16, Alkaline Phosphatase 63, Total Protein 5.9L, Albumin 2.5L, Albumin/Globulin Ratio 0.74L CBC/BMP Laboratory Tests 06/25/19 16:25 06/26/19 05:51 Microbiology Microbiology 06/25/19 Blood Culture, Received Pending 06/25/19 Blood Culture, Received Pending BETTY CHERYR MD Jun 26, 2019 12:46
[2019-06-26 14:00] VITALS: BP 91/45
[2019-06-26] MEDS ORDERED: ACETAMINOPHEN TAB 650MG DOSE (2X325MG) PO PRN (15:00)
[2019-06-26] MEDS ORDERED: E-Z-PAQUE 96% w/w SUSP 176GM BTL As Ordered ONE (15:49)
[2019-06-26] MEDS ORDERED: VARIBAR NECTAR 40% w/v 240ML SUSP BTL As Ordered ONE (15:49)
[2019-06-26] MEDS ORDERED: VARIBAR PUDDING 40% w/v 230ML TUBE As Ordered ONE (15:49)
[2019-06-26] MEDS ORDERED: BARIUM SULFATE 700 MG TABLET (E-Z-DISK) As Ordered ONE (15:50)
--- NOTE | 2019-06-26 19:36 | ECGEPIP ---
[facility] - ED Test Date: 2019-06-25 Pat Name: JESSIE INTERIANO Department: Room: - Gender: Female Dry Color Tester: : 1940 Requested By: Daisha Desouza Order Number: [id number] Reading MD: Daisha Desouza Measurements Intervals [place] Rate: 70 P: 62 HI: 154 QRS: 91 QRSD: 100 T: 67 QT: 395 QTc: 428 Interpretive Statements SINUS RHYTHM BORDERLINE RIGHT AXIS DEVIATION INCOMPLETE RIGHT BUNDLE BRANCH BLOCK 05/16/[address] T WAVE CHANGES Electronically Signed on 06-26-2019 19:35:49 EDT by Daisha Desouza
--- NOTE | 2019-06-26 19:43 | REP ---
Examination Requested: Cookie Swallow Reason For Exam: Aspiration precautions The procedure was performed by SWEETIE Myers, under the direct supervision of Dr. Hammer. The procedure was performed with Mahi Rodas from speech pathology present. 5 ml aliquots of thin, pudding, mixed fruit, soft food, hard food and pill consistency barium was administered. Aspiration was visualized with thin liquid when the patient tip consecutive a sips and swallows with a straw. The detailed report of this examination will be provided by speech pathology. 1.5 minutes of fluoroscopy time was utilized for this procedure. Reviewed by SWEETIE Turcios 06/26/2019 05:03 P Electronically Signed by Anselmo Hammer MD 06/26/2019 07:33 P
[2019-06-26 22:00] VITALS: BP 153/70
[2019-06-26] MEDS: ASPIRIN 81 MG ENTERIC TAB PO SCH (22:23)
[2019-06-27] MEDS: PIPERACILLIN/TAZOBACTAM SOD 2.25 GM in D5W MINI-BAG PLUS 50 ML IV SCH ×4 (04:13→22:25)
[2019-06-27 06:00] VITALS: BP 157/69
[2019-06-27 07:24] LABS: HEMATOCRIT 37.4 % (36.0-47.0); MEAN CORPUSCULAR HEMOGLOBIN 28.2 pg (27.0-33.0); MEAN CORPUSCULAR HGB CONC 29.4 g/dl (32.0-36.5); MEAN CORPUSCULAR VOLUME 95.9 fl (80.0-96.0); PLATELET COUNT, AUTOMATED 203 10^3/uL (150-450); WHITE BLOOD COUNT 10.4 10^3/uL (4.0-10.0)
[2019-06-27 07:47] LABS: ALBUMIN 2.8 GM/DL (3.2-5.2); BILIRUBIN,TOTAL 0.3 MG/DL (0.2-1.0); CALCIUM LEVEL 8.6 MG/DL (8.8-10.2); CREATININE FOR GFR 1.12 MG/DL (0.55-1.30); GLOMERULAR FILTRATION RATE 50.4 (>39); PHOSPHORUS LEVEL 3.2 MG/DL (2.5-4.9); TOTAL PROTEIN 6.7 GM/DL (6.4-8.2)
[2019-06-27] MEDS: EZETIMIBE 10 MG TAB (ZETIA) PO SCH (10:50)
[2019-06-27] MEDS: SPIRONOLACTONE 50 MG TAB PO SCH (10:50)
[2019-06-27] MEDS: VITAMIN D 1,000 INTERNATIONAL UNITS TABLET PO SCH (10:50)
[2019-06-27] MEDS: HEPARIN SOD (PORCINE) 5000 UNITS/ML VIAL SC SCH ×2 (10:50→20:56)
[2019-06-27] MEDS: ESCITALOPRAM OXALATE 10 MG TAB (LEXAPRO) PO SCH (10:50)
[2019-06-27] MEDS: IPRATROPIUM 0.5MG/ALBUTEROL 2.5MG INH SOL UD 3ML (DUONEB)(J7620) NEB PRN (11:13)
[2019-06-27 14:00] VITALS: BP 178/82
[2019-06-27 14:10] VITALS: BP 138/72
--- NOTE | 2019-06-27 16:39 | IPNPDOC ---
Date Seen The patient was seen on 06/27/19. Progress Note HISTORY OF PRESENT ILLNESS: 78-year-old female with past medical history of COPD (on home oxygen) CHF, hypertension, peripheral vascular disease (status post carotid endarterectomy 2, lower extremity stent placement), is brought in by family for progressive confusion/altered mental status. Patient is a poor historian, reports information as accurate/facts which are contradicted by her family will provide different timeframes and information. As per family, patient has been progressively becoming more confused, forgetting simple things like how to use the TV remote or play cards. As per patient, she is at baseline, has no complaints at this time, reports she is doing well and wants to go home. In the ED, patient is found to have elevated creatinine; as per family, she has a very poor appetite, lives alone, all the food brought to her by family members, was found in the fridge without her consuming any. A chest x-ray concerning for pneumonia. Patient reports that she was diagnosed with pneumonia a month ago and has been getting antibiotics since, family reports it never heard of this dispute her claims. Patient denies any change in her baseline cough, denies sputum production, chest pain, vomiting, abdominal pain or diarrhea. 06/26/2019 Patient continues to have dyspnea, cough productive of white sputum. She does appear to be more alert and oriented today, no additional complaints. She denies any chest pain, vomiting, abdominal pain or diarrhea. 06/27/2019 Patient reports improvement in dyspnea, says that she is going home today, has poor outlook on her current situation. Discussed with son, who agrees that patient is not safe to live alone and requesting placement after discharge. Patient denies any chest pain, vomiting, abdominal pain or diarrhea. 10 point review of systems negative except for above HOME MEDICATIONS: Please see below. PHYSICAL EXAMINATION: VITAL SIGNS: Please see below. GENERAL: No distress, thin, frail HEENT: Normocephalic, atraumatic, moist mucous membranes NECK: Supple CARDIOVASCULAR EXAMINATION: S1, S2, no murmurs RESPIRATORY EXAMINATION: Scattered rhonchi, diminished, no wheezing ABDOMINAL EXAMINATION: Soft, nontender, nondistended, positive bowel sounds EXTREMITIES: Range of motion intact SKIN: No rash NEUROLOGICAL EXAMINATION: no focal deficits PSYCHIATRIC EXAMINATION: Calm and cooperative LABORATORY DATA: See below. IMAGING: CT with multifocal pneumonia MICROBIOLOGY: Please see below. ASSESSMENT: 78-year-old female with history of COPD on home oxygen, CHF, peripheral vascular disease, being admitted for acute renal failure and multifocal pneumonia. PLAN: 1. Acute renal failure. Likely due to poor oral intake, medications Resolved, discontinue IV fluids. 2. Multifocal pneumonia Concerned about aspiration, underwent out of 5. Barium swallow yesterday, aspirating thin liquids when drinking from a straw. Continue Zosyn, supplemental oxygen to maintain O2 sats of 90%. Continue PT, OT, assess for rehabilitation/skilled nursing placement. 3. CHF. Stable, continue home meds. 4. COPD Stable, continue home meds, submental oxygen to maintain O2 saturation of 90%. 5. Peripheral vascular disease Continue statin, aspirin DVT prophylaxis: Heparin subcutaneous GI prophylaxis: Not needed VS, I&O, 24H, Fishbone Vital Signs/I&O Vital Signs Date Time Temp Pulse Resp B/P (MAP) Pulse Ox O2 Delivery O2 Flow Rate FiO2 06/27/19 14:10 138/72 (94) 06/27/19 14:00 98.2 63 19 95 Nasal Cannula 2.0 I&O- Last 24 Hours up to 6 AM 06/27/19 05:59 Intake Total 560 ml Balance 560 ml Laboratory Data 24H LABS Laboratory Tests 2 06/27/19 06:54: Nucleated Red Blood Cells % (auto) 0.0, Anion Gap 1L, Glomerular Filtration Rate 50.4, Calcium Level 8.6L, Phosphorus Level 3.2, Magnesium Level 2.0, Total Bilirubin 0.3, Aspartate Amino Transf (AST/SGOT) 12, Alanine Aminotransferase (ALT/SGPT) 20, Alkaline Phosphatase 75, Total Protein 6.7, Albumin 2.8L, Albumin/Globulin Ratio 0.72L CBC/BMP Laboratory Tests 06/27/19 06:54 Microbiology Microbiology 06/25/19 Blood Culture - Preliminary, Resulted No growth after 24 hours . All specim... 06/25/19 Blood Culture - Preliminary, Resulted No growth after 24 hours . All specim... BETTY CHERRY MD Jun 27, 2019 16:39
[2019-06-27] MEDS: ASPIRIN 81 MG ENTERIC TAB PO SCH (20:56)
[2019-06-27 22:00] VITALS: BP 141/81
[2019-06-28] MEDS: PIPERACILLIN/TAZOBACTAM SOD 2.25 GM in D5W MINI-BAG PLUS 50 ML IV SCH (05:33)
[2019-06-28 06:00] VITALS: BP 127/67
[2019-06-28] MEDS: VITAMIN D 1,000 INTERNATIONAL UNITS TABLET PO SCH (09:53)
[2019-06-28] MEDS: CEFDINIR 300 MG CAP (OMNICEF) PO SCH ×2 (09:53→21:03)
[2019-06-28] MEDS: EZETIMIBE 10 MG TAB (ZETIA) PO SCH (09:54)
[2019-06-28] MEDS: ESCITALOPRAM OXALATE 10 MG TAB (LEXAPRO) PO SCH (09:54)
[2019-06-28] MEDS: HEPARIN SOD (PORCINE) 5000 UNITS/ML VIAL SC SCH ×2 (09:54→21:03)
[2019-06-28] MEDS: SPIRONOLACTONE 50 MG TAB PO SCH (09:54)
--- NOTE | 2019-06-28 10:49 | IPNPDOC ---
Date Seen The patient was seen on 06/28/19. Progress Note HISTORY OF PRESENT ILLNESS: 78-year-old female with past medical history of COPD (on home oxygen) CHF, hypertension, peripheral vascular disease (status post carotid endarterectomy 2, lower extremity stent placement), is brought in by family for progressive confusion/altered mental status. Patient is a poor historian, reports information as accurate/facts which are contradicted by her family will provide different timeframes and information. As per family, patient has been progressively becoming more confused, forgetting simple things like how to use the TV remote or play cards. As per patient, she is at baseline, has no complaints at this time, reports she is doing well and wants to go home. In the ED, patient is found to have elevated creatinine; as per family, she has a very poor appetite, lives alone, all the food brought to her by family members, was found in the fridge without her consuming any. A chest x-ray concerning for pneumonia. Patient reports that she was diagnosed with pneumonia a month ago and has been getting antibiotics since, family reports it never heard of this dispute her claims. Patient denies any change in her baseline cough, denies sputum production, chest pain, vomiting, abdominal pain or diarrhea. 06/26/2019 Patient continues to have dyspnea, cough productive of white sputum. She does appear to be more alert and oriented today, no additional complaints. She denies any chest pain, vomiting, abdominal pain or diarrhea. 06/27/2019 Patient reports improvement in dyspnea, says that she is going home today, has poor outlook on her current situation. Discussed with son, who agrees that patient is not safe to live alone and requesting placement after discharge. Patient denies any chest pain, vomiting, abdominal pain or diarrhea. 06/28/2019 Patient comfortable in bed, reports significant improvement in dyspnea and cough, wishing to go home, states that she will have a live-in caregiver after discharge. Called and spoke with son, who reports the patient is confused and there is no one available to live with her and take care of her at home. Will discuss with social work tomorrow regarding home care versus placement. 10 point review of systems negative except for above HOME MEDICATIONS: Please see below. PHYSICAL EXAMINATION: VITAL SIGNS: Please see below. GENERAL: No distress, thin, frail HEENT: Normocephalic, atraumatic, moist mucous membranes NECK: Supple CARDIOVASCULAR EXAMINATION: S1, S2, no murmurs RESPIRATORY EXAMINATION: Clear to auscultation, slightly diminished, no wheezing ABDOMINAL EXAMINATION: Soft, nontender, nondistended, positive bowel sounds EXTREMITIES: Range of motion intact SKIN: No rash NEUROLOGICAL EXAMINATION: no focal deficits PSYCHIATRIC EXAMINATION: Calm and cooperative LABORATORY DATA: See below. IMAGING: CT with multifocal pneumonia MICROBIOLOGY: Please see below. ASSESSMENT: 78-year-old female with history of COPD on home oxygen, CHF, peripheral vascular disease, being admitted for acute renal failure and multifocal pneumonia. PLAN: 1. Acute renal failure. Likely due to poor oral intake, medications Resolved, discontinue IV fluids. 2. Multifocal pneumonia Concerned about aspiration, underwent modified barium swallow, aspirating thin liquids when drinking from a straw. Lost IV access, switch antibiotics to Cefdinir, supplemental oxygen to maintain O2 sats of 90%. 3. CHF. Stable, continue home meds. 4. COPD Stable, continue home meds, submental oxygen to maintain O2 saturation of 90%. 5. Peripheral vascular disease Continue statin, aspirin DVT prophylaxis: Heparin subcutaneous GI prophylaxis: Not needed VS, I&O, 24H, Fishbone Vital Signs/I&O Vital Signs Date Time Temp Pulse Resp B/P (MAP) Pulse Ox O2 Delivery O2 Flow Rate FiO2 06/28/19 06:00 98.2 72 18 127/67 (87) 98 Nasal Cannula 06/27/19 22:00 2.0 I&O- Last 24 Hours up to 6 AM 06/28/19 06:00 Intake Total 860 ml Output Total 300 ml Balance 560 ml Laboratory Data Microbiology Microbiology 06/25/19 Blood Culture - Preliminary, Resulted No Growth after 48 hours. All Specime... 06/25/19 Blood Culture - Preliminary, Resulted No Growth after 48 hours. All Specime... BETTY CHERRY MD Jun 28, 2019 10:49
[2019-06-28 14:00] VITALS: BP 130/69
[2019-06-28] MEDS: ASPIRIN 81 MG ENTERIC TAB PO SCH (21:03)
[2019-06-28 22:00] VITALS: BP 140/82
[2019-06-29 06:00] VITALS: BP 181/70
[2019-06-29] MEDS: VITAMIN D 1,000 INTERNATIONAL UNITS TABLET PO SCH (07:53)
[2019-06-29] MEDS: EZETIMIBE 10 MG TAB (ZETIA) PO SCH (07:53)
[2019-06-29] MEDS: ESCITALOPRAM OXALATE 10 MG TAB (LEXAPRO) PO SCH (07:53)
[2019-06-29] MEDS: HEPARIN SOD (PORCINE) 5000 UNITS/ML VIAL SC SCH ×2 (07:53→20:53)
[2019-06-29] MEDS: CEFDINIR 300 MG CAP (OMNICEF) PO SCH ×2 (07:53→20:52)
[2019-06-29] MEDS: SPIRONOLACTONE 50 MG TAB PO SCH (07:54)
[2019-06-29 08:59] LABS: HEMATOCRIT 37.2 % (36.0-47.0); HEMOGLOBIN 11.1 g/dl (12.0-15.5); MEAN CORPUSCULAR HEMOGLOBIN 27.6 pg (27.0-33.0); MEAN CORPUSCULAR HGB CONC 29.8 g/dl (32.0-36.5); MEAN CORPUSCULAR VOLUME 92.5 fl (80.0-96.0); PLATELET COUNT, AUTOMATED 201 10^3/uL (150-450); RED BLOOD COUNT 4.02 10^6/uL (4.00-5.40); WHITE BLOOD COUNT 8.5 10^3/uL (4.0-10.0)
[2019-06-29 09:20] LABS: CALCIUM LEVEL 8.9 MG/DL (8.8-10.2); CREATININE FOR GFR 0.99 MG/DL (0.55-1.30); GLOMERULAR FILTRATION RATE 58.1 (>39); MAGNESIUM LEVEL 1.9 MG/DL (1.8-2.4); PHOSPHORUS LEVEL 2.9 MG/DL (2.5-4.9); POTASSIUM SERUM 4.7 MEQ/L (3.5-5.1)
--- NOTE | 2019-06-29 15:15 | IPNPDOC ---
Date Seen The patient was seen on 06/29/19. Progress Note HISTORY OF PRESENT ILLNESS: 78-year-old female with past medical history of COPD (on home oxygen) CHF, hypertension, peripheral vascular disease (status post carotid endarterectomy 2, lower extremity stent placement), is brought in by family for progressive confusion/altered mental status. Patient is a poor historian, reports information as accurate/facts which are contradicted by her family will provide different timeframes and information. As per family, patient has been progressively becoming more confused, forgetting simple things like how to use the TV remote or play cards. As per patient, she is at baseline, has no complaints at this time, reports she is doing well and wants to go home. In the ED, patient is found to have elevated creatinine; as per family, she has a very poor appetite, lives alone, all the food brought to her by family members, was found in the fridge without her consuming any. A chest x-ray concerning for pneumonia. Patient reports that she was diagnosed with pneumonia a month ago and has been getting antibiotics since, family reports it never heard of this dispute her claims. Patient denies any change in her baseline cough, denies sputum production, chest pain, vomiting, abdominal pain or diarrhea. 06/26/2019 Patient continues to have dyspnea, cough productive of white sputum. She does appear to be more alert and oriented today, no additional complaints. She denies any chest pain, vomiting, abdominal pain or diarrhea. 06/27/2019 Patient reports improvement in dyspnea, says that she is going home today, has poor outlook on her current situation. Discussed with son, who agrees that patient is not safe to live alone and requesting placement after discharge. Patient denies any chest pain, vomiting, abdominal pain or diarrhea. 06/28/2019 Patient comfortable in bed, reports significant improvement in dyspnea and cough, wishing to go home, states that she will have a live-in caregiver after discharge. Called and spoke with son, who reports the patient is confused and there is no one available to live with her and take care of her at home. Will discuss with social work tomorrow regarding home care versus placement. 06/29/2019 Patient reports that she will be going home today, attempted to leave AMA, stopped by nursing staff and brought back to her room, patient is very angry confused and adamant that she wants to leave today, making up stories about having home care set up, patient is not a safe discharge due to living alone. Ot [facility], patient denies any shortness of breath, having persistent cough, nonproductive, denies chest pain, vomiting, abdominal pain or diarrhea. 10 point review of systems negative except for above HOME MEDICATIONS: Please see below. PHYSICAL EXAMINATION: VITAL SIGNS: Please see below. GENERAL: No distress, thin, frail HEENT: Normocephalic, atraumatic, moist mucous membranes NECK: Supple CARDIOVASCULAR EXAMINATION: S1, S2, no murmurs RESPIRATORY EXAMINATION: Clear to auscultation, slightly diminished, no wheezing ABDOMINAL EXAMINATION: Soft, nontender, nondistended, positive bowel sounds EXTREMITIES: Range of motion intact SKIN: No rash NEUROLOGICAL EXAMINATION: no focal deficits PSYCHIATRIC EXAMINATION: Calm and cooperative LABORATORY DATA: See below. IMAGING: CT with multifocal pneumonia MICROBIOLOGY: Please see below. ASSESSMENT: 78-year-old female with history of COPD on home oxygen, CHF, peripheral vascular disease, being admitted for acute renal failure and multifocal pneumonia. PLAN: 1. Acute renal failure. Likely due to poor oral intake, medications Resolved, discontinue IV fluids. Patient is an unsafe discharge home because she lives alone and is unable to care for self, social service assistant attempting to find placement, patient adamant that she wishes to go home, discussed with son who reports that he has official healthcare proxy, awaiting placement. 2. Multifocal pneumonia Concerned about aspiration, underwent modified barium swallow, aspirating thin liquids when drinking from a straw. Lost IV access, switched antibiotics to Cefdinir, supplemental oxygen to maintain O2 sats of 90%. 3. CHF. Stable, continue home meds. 4. COPD Stable, continue home meds, submental oxygen to maintain O2 saturation of 90%. 5. Peripheral vascular disease Continue statin, aspirin DVT prophylaxis: Heparin subcutaneous GI prophylaxis: Not needed VS, I&O, 24H, Fishbone Vital Signs/I&O Vital Signs Date Time Temp Pulse Resp B/P (MAP) Pulse Ox O2 Delivery O2 Flow Rate FiO2 06/29/19 08:00 2.0 06/29/19 06:00 97.9 73 17 181/70 (107) 92 Nasal Cannula I&O- Last 24 Hours up to 6 AM 06/29/19 05:59 Intake Total 890 ml Output Total 0 ml Balance 890 ml Laboratory Data 24H LABS Laboratory Tests 2 06/29/19 08:42: Nucleated Red Blood Cells % (auto) 0.0, Anion Gap 2L, Glomerular Filtration Rate 58.1, Calcium Level 8.9, Phosphorus Level 2.9, Magnesium Level 1.9 CBC/BMP Laboratory Tests 06/29/19 08:42 Microbiology Microbiology 06/25/19 Blood Culture - Preliminary, Resulted No Growth after 72 hours. All specime... 06/25/19 Blood Culture - Preliminary, Resulted No Growth after 72 hours. All specime... BETTY CHERRY MD Jun 29, 2019 15:15
[2019-06-29] MEDS ORDERED: ALPRAZolam 0.5 MG TAB PO ONE (15:45)
[2019-06-29] MEDS: ASPIRIN 81 MG ENTERIC TAB PO SCH (20:52)
[2019-06-29 22:00] VITALS: BP 150/72
[2019-06-29] MEDS: traMADol 50 MG TAB PO PRN (22:54)
[2019-06-30 05:47] LABS: HEMATOCRIT 36.7 % (36.0-47.0); HEMOGLOBIN 11.3 g/dl (12.0-15.5); MEAN CORPUSCULAR HEMOGLOBIN 27.7 pg (27.0-33.0); MEAN CORPUSCULAR HGB CONC 30.8 g/dl (32.0-36.5); PLATELET COUNT, AUTOMATED 191 10^3/uL (150-450); RED BLOOD COUNT 4.08 10^6/uL (4.00-5.40); WHITE BLOOD COUNT 9.3 10^3/uL (4.0-10.0)
[2019-06-30 06:00] VITALS: BP 144/76
[2019-06-30 06:10] LABS: CREATININE FOR GFR 1.1 MG/DL (0.55-1.30); GLOMERULAR FILTRATION RATE 51.4 (>39); MAGNESIUM LEVEL 1.9 MG/DL (1.8-2.4); POTASSIUM SERUM 4.8 MEQ/L (3.5-5.1)
[2019-06-30] MEDS: CEFDINIR 300 MG CAP (OMNICEF) PO SCH ×2 (09:50→20:55)
[2019-06-30] MEDS: VITAMIN D 1,000 INTERNATIONAL UNITS TABLET PO SCH (09:50)
[2019-06-30] MEDS: ESCITALOPRAM OXALATE 10 MG TAB (LEXAPRO) PO SCH (09:50)
[2019-06-30] MEDS: SPIRONOLACTONE 50 MG TAB PO SCH (09:50)
[2019-06-30] MEDS: EZETIMIBE 10 MG TAB (ZETIA) PO SCH (09:51)
[2019-06-30] MEDS: traMADol 50 MG TAB PO PRN (09:51)
[2019-06-30] MEDS: HEPARIN SOD (PORCINE) 5000 UNITS/ML VIAL SC SCH ×2 (09:51→20:55)
[2019-06-30 14:00] VITALS: BP 145/77
--- NOTE | 2019-06-30 16:21 | IPNPDOC ---
Text Note Date of Service The patient was seen on 06/30/19. NOTE Subjective: No any acute events overnight. Patient is not oriented in time, and in place. She consistently asking about discharge to home. Patient denies fever, chills, nausea, vomiting, diarrhea or dysuria. Objective: Objective:VITAL SIGNS: Please see below. GENERAL APPEARANCE: Well-nourished, well-developed, not in apparent distress HEENT: Normocephalic, atraumatic. Mucous members moist and pink CARDIOVASCULAR: Regular rate and rhythm. No murmurs, rubs or gallops. Radial pulses are intact. There is no lower extremity edema LUNGS: . Diminished lung sounds ABDOMEN: Bowel sounds are hypoactive. Abdomen is soft and nontender. MUSCULOSKELETAL: Range of motion is intact in all 4 extremities NEUROLOGICAL: Cranial nerves II-12 are grossly intact. Speech is not dysarthric ASSESSMENT: 78-year-old female with history of COPD on home oxygen, CHF, peripheral vascular disease, being admitted for acute renal failure and multifocal pneumonia 1. Acute renal failure. Likely due to poor oral intake, medications Resolved 2. Multifocal pneumonia Concerned about aspiration, underwent modified barium swallow, aspirating thin liquids when drinking from a straw. Continue Cefdinir, supplemental oxygen to maintain O2 sats of 90%. Aspiration precaution 3. CHF. Stable, continue home meds. 4. COPD Stable, continue home meds, submental oxygen to maintain O2 saturation of 90%. 5. Peripheral vascular disease Continue statin, aspirin Patient will be discharged tomorrow to longterm. There is concern for underlying dementia, patient was noncompliant to medications, she had poor oral intake in the outpatient settings, she has declining of short-term memory, marylou quent disorientation. Patient will need follow-up with neurologist DVT prophylaxis: Heparin subcutaneous GI prophylaxis: Not needed VS,Fishbone, I+O VS, Fishbone, I+O Laboratory Tests 06/30/19 05:32 Vital Signs Date Time Temp Pulse Resp B/P (MAP) Pulse Ox O2 Delivery O2 Flow Rate FiO2 06/30/19 14:00 98.2 67 19 145/77 (99) 94 Nasal Cannula 2.0 I&O- Last 24 Hours up to 6 AM 06/30/19 05:59 Intake Total 340 ml Output Total 450 ml Balance -110 ml LICO NOGUERA DO Jun 30, 2019 16:21
[2019-06-30] MEDS: ASPIRIN 81 MG ENTERIC TAB PO SCH (20:55)
[2019-06-30 22:00] VITALS: BP 143/80
[2019-07-01 06:00] VITALS: BP 137/82
[2019-07-01 06:33] LABS: HEMATOCRIT 35.9 % (36.0-47.0); MEAN CORPUSCULAR HGB CONC 30.6 g/dl (32.0-36.5); MEAN CORPUSCULAR VOLUME 91.3 fl (80.0-96.0); PLATELET COUNT, AUTOMATED 188 10^3/uL (150-450); RED BLOOD COUNT 3.93 10^6/uL (4.00-5.40); WHITE BLOOD COUNT 8.8 10^3/uL (4.0-10.0)
[2019-07-01 07:03] LABS: CREATININE FOR GFR 1.15 MG/DL (0.55-1.30); GLOMERULAR FILTRATION RATE 48.8 (>39); POTASSIUM SERUM 4.7 MEQ/L (3.5-5.1)
[2019-07-01] MEDS: EZETIMIBE 10 MG TAB (ZETIA) PO SCH (08:39)
[2019-07-01] MEDS: CEFDINIR 300 MG CAP (OMNICEF) PO SCH (08:39)
[2019-07-01] MEDS: ESCITALOPRAM OXALATE 10 MG TAB (LEXAPRO) PO SCH (08:39)
[2019-07-01] MEDS: SPIRONOLACTONE 50 MG TAB PO SCH (08:39)
[2019-07-01] MEDS: HEPARIN SOD (PORCINE) 5000 UNITS/ML VIAL SC SCH (08:39)
[2019-07-01] MEDS: VITAMIN D 1,000 INTERNATIONAL UNITS TABLET PO SCH (08:39)
[2019-07-01] MEDS ORDERED: ACET1TAB55 PO (09:03)
[2019-07-01] MEDS ORDERED: CEFD300CAP PO (09:03)
--- NOTE | 2019-07-01 17:04 | DS.PDOC ---
Discharge Summary General Date of Admission Jun 25, 2019 at 18:24 Date of Discharge 07/01/19 Primary Care Physician: KATLYN MCCONNELL M.D. Attending Physician: LICO NOGUERA DO Discharge Summary PROCEDURES PERFORMED DURING STAY: None ADMITTING DIAGNOSES: Acute renal failure Multifocal pneumonia diastolic CHF COPD Peripheral vascular disease DISCHARGE DIAGNOSES: Acute renal failure Multifocal pneumonia diastolic CHF COPD Peripheral vascular disease COMPLICATIONS/CHIEF COMPLAINT: Carotid Artery Diseased Chf Copd Hypertension. HISTORY OF PRESENT ILLNESS:HISTORY OF PRESENT ILLNESS: 78-year-old female with past medical history of COPD (on home oxygen) CHF, hypertension, peripheral vascular disease (status post carotid endarterectomy 2, lower extremity stent placement), is brought in by family for progressive confusion/altered mental status. Patient is a poor historian, reports information as accurate/facts which are contradicted by her family will provide different timeframes and information. As per family, patient has been progressively becoming more confused, forgetting simple things like how to use the TV remote or play cards. As per patient, she is at baseline, has no complaints at this time, reports she is doing well and wants to go home. In the ED, patient is found to have elevated creatinine; as per family, she has a very poor appetite, lives alone, all the food brought to her by family members, was found in the fridge without her c onsuming any. A chest x-ray concerning for pneumonia. Patient reports that she was diagnosed with pneumonia a month ago and has been getting antibiotics since, family reports it never heard of this dispute her claims. Patient denies any change in her baseline cough, denies sputum production, chest pain, vomiting, abdominal pain or diarrhea. 06/26/2019 Patient continues to have dyspnea, cough productive of white sputum. She does appear to be more alert and oriented today, no additional complaints. She denies any chest pain, vomiting, abdominal pain or diarrhea. 06/27/2019 Patient reports improvement in dyspnea, says that she is going home today, has poor outlook on her current situation. Discussed with son, who agrees that patient is not safe to live alone and requesting placement after discharge. Patient denies any chest pain, vomiting, abdominal pain or diarrhea. 06/28/2019 Patient comfortable in bed, reports significant improvement in dyspnea and cough, wishing to go home, states that she will have a live-in caregiver after discharge. Called and spoke with son, who reports the patient is confused and there is no one available to live with her and take care of her at home. 06/29/2019 Patient reports that she will be going home today, attempted to leave AMA, stopped by nursing staff and brought back to her room, patient is very angry confused and adamant that she wants to leave today, making up stories about having home care set up, patient is not a safe discharge due to living alone. Otherwise, patient denies any shortness of breath, having persistent cough, nonproductive, denies chest pain, vomiting, abdominal pain or diarrhea. HOSPITAL COURSE:see above 1. Acute renal failure. Likely due to poor oral intake, medications Resolved 2. Multifocal pneumonia Concerned about aspiration, underwent modified barium swallow, aspirating thin liquids when drinking from a straw. Continue Cefdinir, supplemental oxygen to maintain O2 sats of 90%. Aspiration precaution 3. CHF. Stable, continue home meds. 4. COPD Stable, continue home meds, submental oxygen to maintain O2 saturation of 90%. 5. Peripheral vascular disease Continue statin, aspirin DISCHARGE MEDICATIONS: Please see below. ALLERGIES: Please see below. PHYSICAL EXAMINATION ON DISCHARGE: VITAL SIGNS: Please see below. GENERAL APPEARANCE: Well-nourished, well-developed, not in apparent distress HEENT: Normocephalic, atraumatic. Mucous members moist and pink CARDIOVASCULAR: Regular rate and rhythm. No murmurs, rubs or gallops. Radial pulses are intact. There is no lower extremity edema LUNGS: . Diminished lung sounds ABDOMEN: Bowel sounds are hypoactive. Abdomen is soft and nontender. MUSCULOSKELETAL: Range of motion is intact in all 4 extremities NEUROLOGICAL: Cranial nerves II-12 are grossly intact. Speech is not dysarthric LABORATORY DATA: Please see below. IMAGING: NAME: JESSIE INTERIANO DATE OF : 1940 BUSINESS NUMBER: [id number] AGE: 78 SEX: F REPORT #: [id number] ROOM: ED INP TECHNOLOGIST: MALDONADO DOCTOR: BETTY CHERRY MD Ordered for Date&Time: 06/25/19 0221 cc: [~ rep ct ivnm] Service Date&Time: 06/25/19 1742 EXAMINATION REQUESTED: CT Chest without contrast REASON FOR PATIENT VISIT: CAROTID ARTERY DISEASED CHF COPD HYPERTENSION REASON FOR EXAMINATION: PNA PROCEDURE INFORMATION: Exam: CT Chest Without Contrast Exam date and time: 06/25/2019 5:42 PM Clinical history: 78 years old, female; Condition or disease; Lung condition and disease; Pneumonia; Additional info: Pna TECHNIQUE: Imaging protocol: Computed tomography of the chest without contrast. 3D rendering: MIP reconstructed images were created and reviewed. Radiation optimization: All CT scans at this facility use at least one of these dose optimization techniques: automated exposure control; mA and/or kV adjustment per patient size (includes targeted exams where dose is matched to clinical indication); or iterative reconstruction. COMPARISON: CT Chest without contrast 05/16/2017 11:03 AM FINDINGS: Lungs: Small scattered airspace opacities throughout the lungs, including subsegmental areas of consolidation, most pronounced in the right middle lobe. Pleural space: Trace right pleural effusion. Heart: Mitral annular calcifications. Aorta: Mild atherosclerotic calcifications of the aorta. Lymph nodes: No enlarged lymph nodes. Gallbladder and bile ducts: Gallbladder surgically absent. Bones/joints: Multilevel degenerative changes of the visualized spine. Soft tissues: Unremarkable. IMPRESSION: 1. Small scattered airspace opacities throughout the lungs, including subsegmental areas of consolidation, most pronounced in the right middle lobe. Findings concerning for multifocal pneumonia. Recommend followup chest imaging in 6-8 weeks resolution. 2. Trace right pleural effusion. 3. Other chronic findings, as above. Electronically signed by: Andre Kellogg On 06/25/2019 18:45:44 PM DD: ANDRE KELLOGG MD 06/25/19 1742 DT: HARSHA 06/25/[id number] DS: RILEY 06/25/19 184 PROGNOSIS: favorable ACTIVITY:As tolerated. DIET: Cardiac DISCHARGE PLAN: Continue prescribed medications DISPOSITION: [facility] ITEMS TO FOLLOWUP ON ON OUTPATIENT: Follow-up with primary care physician 3-4 days DISCHARGE CONDITION: Stable TIME SPENT ON DISCHARGE: Greater than 20 minutes. Vital Signs/I&Os Vital Signs Date Time Temp Pulse Resp B/P (MAP) Pulse Ox O2 Delivery O2 Flow Rate FiO2 07/01/19 09:00 2.0 07/01/19 06:00 98.7 72 18 137/82 (100) 96 Nasal Cannula I&O- Last 24 Hours up to 6 AM 07/01/19 05:59 Intake Total 1650 ml Balance 1650 ml Laboratory Data Labs 24H Laboratory Tests 2 07/01/19 05:33: Nucleated Red Blood Cells % (auto) 0.0, Anion Gap 5L, Glomerular Filtration Rate 48.8, Calcium Level 9.0, Magnesium Level 2.0 CBC/BMP Laboratory Tests 07/01/19 05:33 Microbiology Microbiology 06/25/19 Blood Culture - Final, Complete NO GROWTH AFTER 5 DAYS 06/25/19 Blood Culture - Final, Complete NO GROWTH AFTER 5 DAYS Discharge Medications Scheduled Aspirin (Aspirin EC) 81 Mg Tab, 81 MG PO QHS, (Reported) Bumetanide (Bumetanide) 2 Mg Tablet, 2 MG PO DAILY, (Reported) Cefdinir (Cefdinir) 300 Mg Capsule, 300 MG PO BID Cholecalciferol (Vitamin D3) (Vitamin D3) 1,000 Unit Tablet, 1,000 UNIT PO DAILY, (Reported) Escitalopram Oxalate (Escitalopram Oxalate) 20 Mg Tab, 20 MG PO DAILY, (Reported) Ezetimibe (Zetia) 10 Mg Tab, 10 MG PO DAILY, (Reported) Fluticasone/Vilanterol (Breo Ellipta 200-25 Mcg INH) 1 Inh Inh, 1 PUFF INH DAILY, (Reported) Losartan Potassium (Losartan Potassium) 50 Mg Tablet, 50 MG PO DAILY, (Reported) Magnesium Oxide (Magnesium Oxide) 400 Mg Tab, 400 MG PO DAILY, (Reported) Meloxicam (Meloxicam) 15 Mg Tab, 15 MG PO DAILY, (Reported) Spironolactone (Spironolactone) 50 Mg Tablet, 50 MG PO DAILY, (Reported) Scheduled PRN Acetaminophen (Acetaminophen) 325 Mg Tablet, 650 MG PO Q6HP PRN for PAIN / FEVER Acetaminophen/Diphenhydramine (Acetaminophen Pm Caplet) 1 Each Tablet, 1 TAB PO QHS PRN for SLEEP, (Reported) Albuterol Sulfate (Ventolin Hfa) 18 Gm Hfa.aer.ad, 2 PUFF INH Q4H PRN for wheezing, (Reported) Tramadol HCl (Tramadol HCl) 50 Mg Tab, 50 MG PO for PAIN, (Reported) Allergies Coded Allergies: Sulfa (Sulfonamide Antibiotics) (Verified Allergy, Unknown, 06/25/19) ciprofloxacin (Verified Allergy, Unknown, 06/25/19) morphine (Verified Allergy, Unknown, 06/25/19) LICO NOGUERA DO Jul 01, 2019 17:04
== END 2019-07-01 11:26 | DRG 682 ==
LOC: M ED 15:08 → M MSPAV 18:24 → M ED INP 18:24 → M MSPAV 22:00
PROVIDERS: ADMIT Internal Medicine; ATTEND Internal Medicine
DX: N17.9 Acute kidney failure, unspecified (principal); J18.9 Pneumonia, unspecified organism; E87.3 Alkalosis; I50.9 Heart failure, unspecified; J44.9 Chronic obstructive pulmonary disease, unspecified; I73.9 Peripheral vascular disease, unspecified; Z99.81 Dependence on supplemental oxygen; I11.0 Hypertensive heart disease with heart failure; Z95.820 Peripheral vascular angioplasty status with implants and grafts; E78.5 Hyperlipidemia, unspecified; F17.210 Nicotine dependence, cigarettes, uncomplicated; Z90.79 Acquired absence of other genital organ(s); Z79.82 Long term (current) use of aspirin; Z79.899 Other long term (current) drug therapy; Z88.2 Allergy status to sulfonamides; Z88.1 Allergy status to other antibiotic agents; Z88.6 Allergy status to analgesic agent; Z91.14 Patient's other noncompliance with medication regimen; R41.0 Disorientation, unspecified; R63.3 Feeding difficulties; F03.90 Unspecified dementia, unspecified severity, without behavioral disturbance, psychotic disturbance, mood disturbance, and anxiety; R41.82 Altered mental status, unspecified